=== PATIENT | male | born 1975 ===

== ENCOUNTER 2020-05-16 12:17 | Emergency (ER) | payer OTHER ==
[~2020-05-16] VITALS: Ht 182.9 cm; Wt 90.7 kg
[2020-05-16] MEDS ORDERED: VYVANSE30 MG (13:01)
[2020-05-16] MEDS ORDERED: MORGIDOX100 MG PO (18:18)
[2020-05-16] MEDS ORDERED: PROVENTIL HFA6.7 GM IH (18:18)
[2020-05-16] MEDS ORDERED: NASAL MIST126 ML NASAL (18:18)
[2020-05-16] MEDS ORDERED: ZYRTEC10 M3 PO (18:18)
[2020-05-16] MEDS ORDERED: GUAIFENESIN400 MG PO (18:18)
== END 2020-05-16 18:29 | disposition home or self-care (01) ==
LOC: ER 12:17 → CPU-OBS 12:51 → ER 18:29
DX: R07.89 Other chest pain (principal); Z03.818 Encounter for observation for suspected exposure to other biological agents ruled out
CPT/HCPCS: 93005; G0378; G0379